=== PATIENT | female | born 1975 | race Caucasian/White ===

== ENCOUNTER → 2021-07-06 15:24 | Outpatient (CLI) | payer OTHER, SELFPAY ==
--- NOTE | ~2021-07-06 | XR_ITS ---
EXAMINATION: XR chest 2V 07/06/2021 15:52 INDICATION: Thoracic back pain PROCEDURE: 2 view chest COMPARISON: No prior studies for comparison. FINDINGS: The lungs are clear. The cardiomediastinal silhouette is within normal limits. There are no pleural effusions. There is no pneumothorax suspected. IMPRESSION: 1: NO ACUTE CARDIOPULMONARY DISEASE. Reviewed, dictated and finalized at location A.
== END ==
PROVIDERS: PCP Physician Assistant; Visit Provider Physician Assistant
DX: R11.2 Nausea with vomiting, unspecified (principal)
CPT/HCPCS: 71046

== ENCOUNTER → 2021-07-17 11:06 | Outpatient (CLI) | payer OTHER, SELFPAY ==
--- NOTE | ~2021-07-17 | US_ITS ---
US abdomen limited INDICATION: Right upper abdominal pain PROCEDURE: Realtime right upper abdominal ultrasound. COMPARISON: No prior studies for comparison. FINDINGS: The pancreas is normal without focal mass or pancreatic ductal dilation. Liver echotexture is normal without focal mass or intrahepatic biliary dilatation. There is normal directional flow i n the portal vein. The gallbladder is normal without stones, gallbladder wall thickening or pericholecystic fluid. Comm on bile duct measures 3 mm. No sonographic Dawkins's sign. IMPRESSION: 1: Normal limited abdominal ultrasound. Reviewed, dictated and finalized at location A.
== END ==
PROVIDERS: PCP Physician Assistant; Visit Provider Physician Assistant
DX: M54.6 Pain in thoracic spine (principal); R11.2 Nausea with vomiting, unspecified
CPT/HCPCS: 76705

== ENCOUNTER → 2022-09-30 09:39 | Outpatient (CLI) | payer OTHER, SELFPAY ==
--- NOTE | ~2022-09-30 | MM_ITS ---
EXAMINATION: MM screening roverto BI w miriam HISTORY: Screening TECHNIQUE: Craniocaudal and mediolateral oblique 3-D tomosynthesis images were obtained and synthetic 2-D images were generated. CAD analysis was submitted and interpreted. COMPARISON: 02/23/2018 BREAST PARENCHYMAL COMPOSITION: There are scattered areas of fibroglandular density. FINDINGS: There is no evidence of suspicious mass, calcification, or architectural distortion to sugg est malignancy in either breast. There has been no suspicious interval change. IMPRESSION: 1. No mammographic evidence of malignancy. 2. Recommend routine screening mammography in one year. BI-RADS Category 1: Negative Reviewed, dictated and finalized at location B. FLAKER
== END ==
PROVIDERS: PCP Physician Assistant; Visit Provider Physician Assistant
DX: Z12.31 Encounter for screening mammogram for malignant neoplasm of breast (principal)
CPT/HCPCS: 77063; 77067

== ENCOUNTER 2024-08-08 15:06 | Outpatient (CLI) | payer OTHER, SELFPAY ==
--- NOTE | ~2024-08-08 | MM_ITS ---
EXAMINATION: MM screening roverto BI w miriam HISTORY: Screening TECHNIQUE: Craniocaudal and mediolateral oblique 3-D tomosynthesis images were obtained and synthetic 2-D images were generated. CAD analysis was submitted and interpreted. COMPARISON: Comparison to multiple prior studies sequentially, with oldest reviewed study dated 02/23. BREAST PARENCHYMAL COMPOSITION: Not dense: There are scattered areas of fibroglandular density. FINDINGS: There is no evidence of suspicious mass, calcification, or architectural distortion to sugg est malignancy in either breast. There has been no suspicious interval change. IMPRESSION: 1. No mammographic evidence of malignancy. 2. Recommend routine screening mammography in one year. BI-RADS Category 1: Negative Reviewed, dictated and finalized at location B.
== END 2024-08-08 15:07 | disposition home or self-care (01) ==
PROVIDERS: PCP Physician Assistant; Visit Provider Nurse Practitioner
DX: Z12.31 Encounter for screening mammogram for malignant neoplasm of breast (principal)
CPT/HCPCS: 77063; 77067

== ENCOUNTER 2025-04-28 10:16 | Day surgery (SDC) | payer OTHER, SELFPAY ==
[2024-09-18 10:13] VITALS: BMI 25.6
[2024-12-30 11:39] VITALS: BMI 24.2
[2025-04-16 08:57] VITALS: BMI 24.4
--- OUTSIDE RECORDS SUMMARY | 2025-04-28 10:36 | XMS_ITS | Clinical Summary ---
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[employer] Gender Identity Not on file Sexual Orientation Not on file Plan of Treatment Health Maintenance Due Date Last Done Comments Hepatitis C Virus (HCV) Screening 1976 TdaP Immunization 1976 Hepatitis B Immunization (1 of 3 - 19+ 3-dose series) 1995 Pap Smear 1997 Cervical Cancer Screening (CCS) 2006 HPV/Cotest 2006 Discussion re Starting/Frequ ency of Mammograms 2016 Colonoscopy 2021 Colorectal Cancer Screening 2021 Influenza Immunization (#1) 2024 07/16/2019 SARS-COV-2 Immunization ( season) 2024 Respiratory Syncytial Virus (RSV) Immunization (Adult) (1 - 1-dose 75+ series) 2051 Meningococcal Immunization (ACWY) Aged Out No longer eligible based on patient's age to complete this topic Pneumococcal Immunization Combined Aged Out No longer eligible based on patient's age to complete this topic Rotavirus Immunization Aged Out No lo nger eligible based on patient's age to complete this topic
--- OUTSIDE RECORDS SUMMARY | 2025-04-28 10:36 | XMS_ITS | Data Portability ---
[facility] Address [address] [place] [address] Assessment Encounter Date Assessment Date Assessment LastModified by Organization Details LastModified Time 08/30/2024 08/30/2024 Mammogram UTD 2023 [email or web address] Not available 08/30/2024 15:40:42 Plan of Treatment Reminders Order Date Submit Date Provider Last Modified By Organization Details Last Modified Time Details Appointments None recorded. Lab TSH + free T4, serum 2023 024 SHENG Olson, [address], [address], [place], [address], 5 09:08:34 CMP, serum or plasma 2023 024 SHENG Olson, [address], [address], [place], [address], 5 09:08:35 CBC w/ auto diff 2023 024 SHENG Olson, [address], [address], [place], [address], 5 09:08:38 vitamin B12 + folate, serum or blood 2023 024 SHENG Olson, [address], [address], [place], [address], 5 09:08:36 lipid panel, serum 2023 024 SHENG Olson, [address], [address], [place], [address], 5 09:08:33 HbA1c (hemoglobin A1c), blood 2023 AD[facility], [address], [address], [place], [address], 5 09:08:37 Referral None recorded. Procedures colonoscopy screening (PROC) [address] [facility], [address], [address], [place], [address], 5 10:55:47 Surgeries None recorded. Imaging None recorded. Medication Orders fluoxetine 20 mg capsule 2023 ADAMS [id number], [address], [place], [place], [id number], 4 15:41:55 Patient TargetsNo targets recorded. Patient InstructionsNo instructions recorded. Reason for Referral None Reported. Results Created Date Observation Date Name Description Value Unit Range Abnormal Flag Note LastModifiedBy Organization Detail LastModifiedTime 12/21/1912/21/2024 LIPID PANEL W/ CHOL/ HDL RATIO cholesterol, total 169 mg/dL 100-19 9 Not Available [facility] ([facility]) [address] [facility], [place], [address], 12/21/2024 09:08:33 12/21/1912/21/2024 LIPID PANEL W/ CHOL/ HDL RATIO triglyceride s 51 mg/dL 0-149 Not Available [facility] ([facility]) [address] [facility], [place], [address], 12/21/2024 09:08:33 12/21/19 25 12/21/2024 LIPID PANEL W/ CHOL/ HDL RATIO HDL cholesterol 83 mg/dL >39 Not Available [facility] ([facility]) [address] [facility], [place], [address], 12/21/2024 09:08:33 12/21/19 25 12/21/2024 LIPID PANEL W/ CHOL/ HDL RATIO VLDL cholesterol víctor 10 mg/dL 5-40 Not Available [facility] ([facility]) [address] [place], [address], 12/21/2024 09:08:33 12/21/19 25 12/21/2024 LIPID PANEL W/ CHOL/ HDL RATIO LDL chol calc ([facility]) 76 mg/dL 0-99 Not Available [facility] ([facility]) [address] [place], [address], 12/21/2024 09:08:33 12/21/19 25 12/21/2024 LIPID PANEL W/ CHOL/ HDL RATIO T. chol/HDL ratio 2.0 ratio 0.0-4. 4 T. Chol/ HDL Ratio Men Women 1/2 Avg.R isk 3.4 3.3 Avg.R isk 5.0 4.4 2X Avg.R isk 9.6 7.1 3X Avg.R isk 23.4 11.0 Not Available [facility] ([facility]) [address] [place], [address], 12/21/2024 09:08:33 12/21/19 25 12/21/2024 TSH+F REE T4 TSH 1.730 uIU/m L 0.450- 4.500 Not Available [facility] ([facility]) [address] [place], [address], 12/21/2024 09:08:34 12/21/19 25 12/21/2024 TSH+F REE T4 T4,free(dire ct) 1.09 NG/dL 0.82-1 .77 Not Available [facility] ([facility]) [address] [place], [address], 12/21/2024 09:08:34 12/21/19 25 12/21/2024 COMP. METAB OLIC PANEL (14) glucose 87 mg/dL 70-99 Not Available [facility] ([facility]) [address], [place], [address], 12/21/2024 09:08:35 12/21/19 25 12/21/2024 COMP. METAB OLIC PANEL (14) BUN 14 mg/dL 6-24 Not Available [facility] ([facility]) [address] [facility] [place], [address], 12/21/2024 09:08:35 12/21/19 25 12/21/2024 COMP. METAB OLIC PANEL (14) creatinine 0.97 mg/dL 0.57-1 .00 Not Available [facility] ([facility]) [address] [facility] [place], [address], 12/21/2024 09:08:35 12/21/19 25 12/21/2024 COMP. METAB OLIC PANEL (14) eGFR 72 mL/mi n/1.7 3 >59 Not Available [facility] ([facility]) [address], [place], [address], 12/21/2024 09:08:35 12/21/19 25 12/21/2024 COMP. METAB OLIC PANEL (14) BUN/creatini ne ratio 14 9-23 Not Available [facility] ([facility]) [address] [facility], [place], [address], 12/21/2024 09:08:35 12/21/19 25 12/21/2024 COMP. METAB OLIC PANEL (14) sodium 140 mmol/ L 134-14 4 Not Available [facility] ([facility]) [address] [facility] [place], [address], 12/21/2024 09:08:35 12/21/19 25 12/21/2024 COMP. METAB OLIC PANEL (14) potassium 4.7 mmol/ L 3.5-5. 2 Not Available [facility] ([facility]) [address] [facility], [place], [address], 12/21/2024 09:08:35 12/21/19 25 12/21/2024 COMP. METAB OLIC PANEL (14) chloride 102 mmol/ L 96-106 Not Available [facility] ([facility]) [address] [facility] [place], [address], 12/21/2024 09:08:35 12/21/19 25 12/21/2024 COMP. METAB OLIC PANEL (14) carbon dioxide, total 23 mmol/ L 20-29 Not Available [facility] ([facility]) [address] [place], [address], 12/21/2024 09:08:35 12/21/19 25 12/21/2024 COMP. METAB OLIC PANEL (14) calcium 9.7 mg/dL 8.7-10 .2 Not Available [facility] ([facility]) [address] [facility] [place] [place], [address], 12/21/2024 09:08:35 12/21/19 25 12/21/2024 COMP. METAB OLIC PANEL (14) protein, total 7.0 g/dL 6.0-8. 5 Not Available [facility] ([facility]) [address] [facility] [place] [place], [address], 12/21/2024 09:08:35 12/21/19 25 12/21/2024 COMP. METAB OLIC PANEL (14) albumin 4.3 g/dL 3.9-4. 9 Not Available [facility] ([facility]) [address] [facility] [place], [address], 12/21/2024 09:08:35 12/21/19 25 12/21/2024 COMP. METAB OLIC PANEL (14) globulin, total 2.7 g/dL 1.5-4. 5 Not Available [facility] ([facility]) [address] [facility] [place], [address], 12/21/2024 09:08:35 12/21/19 25 12/21/2024 COMP. METAB OLIC PANEL (14) bilirubin, total 1.0 mg/dL 0.0-1. 2 Not Available [facility] ([facility]) [address] [facility] [place], [address], 12/21/2024 09:08:35 12/21/19 25 12/21/2024 COMP. METAB OLIC PANEL (14) alkaline phosphatase 61 IU/L 44-121 Not Available [facility] ([facility]) [address] [facility], [place], [address], 12/21/2024 09:08:35 12/21/19 25 12/21/2024 COMP. METAB OLIC PANEL (14) AST (SGOT) 15 IU/L 0-40 Not Available [facility] ([facility]) [address] [facility] [place], [address], 12/21/2024 09:08:35 12/21/19 25 12/21/2024 COMP. METAB OLIC PANEL (14) ALT (SGPT) 8 IU/L 0-32 Not Available [facility] ([facility]) [address] [facility] [place], [address], 12/21/2024 09:08:35 12/21/19 25 12/21/2024 VITAM IN B12 AND FOLAT E vitamin B12 248 pg/mL 232-12 45 Not Available [facility] ([facility]) [address] [facility] [place], [address], 12/21/2024 09:08:36 12/21/19 25 12/21/2024 VITAM IN B12 AND FOLAT E folate (folic acid), serum 4.7 NG/mL >3.0 A serum folat e kierra ntrat ion of less than 3.1 ng/mL is consi dered to repre sent clini víctor defic iency . Not Available [facility] ([facility]) [address] [facility] [place], [address], 12/21/2024 09:08:36 12/21/19 25 12/21/2024 HEMOG LOBIN A1C hemoglobin A1C 5.3 % 4.8-5. 6 Predi abete s: 5.7 - 6.4 Diabe ralph: >6.4 Glyce carlos contr ol for adult s with diabe ralph: <7.0 Not Available [facility] ([facility]) [address] [facility], [place], [address], 12/21/2024 09:08:37 12/21/19 25 12/21/2024 CBC WITH DIFFE RENTI AL/PL ATELE T WBC 4.4 x10e3 /uL 3.4-10 .8 Not Available [facility] ([facility]) [address] [facility], [place], [address], 12/21/2024 09:08:38 12/21/19 25 12/21/2024 CBC WITH DIFFE RENTI AL/PL ATELE T RBC 4.41 x10e6 /uL 3.77-5 .28 Not Available [facility] ([facility]) [address] [facility], [place], [address], 12/21/2024 09:08:38 12/21/19 25 12/21/2024 CBC WITH DIFFE RENTI AL/PL ATELE T hemoglobin 13.6 g/dL 11.1-1 5.9 Not Available [facility] ([facility]) [address] [facility], [place], [address], 12/21/2024 09:08:38 12/21/19 25 12/21/2024 CBC WITH DIFFE RENTI AL/PL ATELE T hematocrit 40.9 % 34.0-4 6.6 Not Available [facility] ([facility]) [address] [place], [address], 12/21/2024 09:08:38 12/21/19 25 12/21/2024 CBC WITH DIFFE RENTI AL/PL ATELE T MCV 93 fL 79-97 Not Available [facility] ([facility]) [address] [facility], [place], [address], 12/21/2024 09:08:38 12/21/19 25 12/21/2024 CBC WITH DIFFE RENTI AL/PL ATELE T MCH 30.8 pg 26.6-3 3.0 Not Available [facility] ([facility]) [address] [facility], [place], [address], 12/21/2024 09:08:38 12/21/19 25 12/21/2024 CBC WITH DIFFE RENTI AL/PL ATELE T MCHC 33.3 g/dL 31.5-3 5.7 Not Available [facility] ([facility]) [address] [facility], [place], [address], 12/21/2024 09:08:38 12/21/19 25 12/21/2024 CBC WITH DIFFE RENTI AL/PL ATELE T RDW 12.6 % 11.7-1 5.4 Not Available [facility] ([facility]) [address] [facility], [place], [address], 12/21/2024 09:08:38 12/21/19 25 12/21/2024 CBC WITH DIFFE RENTI AL/PL ATELE T platelets 243 x10e3 /uL 150-45 0 Not Available [facility] ([facility]) [address] [place], [address], 12/21/2024 09:08:38 12/21/19 25 12/21/2024 CBC WITH DIFFE RENTI AL/PL ATELE T neutrophils 49 % notest ab. Not Available [facility] ([facility]) [address] [place], [address], 12/21/2024 09:08:38 12/21/19 25 12/21/2024 CBC WITH DIFFE RENTI AL/PL ATELE T lymphs 36 % notest ab. Not Available [facility] ([facility]) [address] [place], [address], 12/21/2024 09:08:38 12/21/19 25 12/21/2024 CBC WITH DIFFE RENTI AL/PL ATELE T monocytes 7 % notest ab. Not Available [facility] ([facility]) [address] [facility], [place], [address], 12/21/2024 09:08:38 12/21/19 25 12/21/2024 CBC WITH DIFFE RENTI AL/PL ATELE T eos 7 % notest ab. Not Available [facility] ([facility]) [address] [facility], [place], [address], 12/21/2024 09:08:38 12/21/19 25 12/21/2024 CBC WITH DIFFE RENTI AL/PL ATELE T basos 1 % notest ab. Not Available [facility] ([facility]) [address] [place], [address], 12/21/2024 09:08:38 12/21/19 25 12/21/2024 CBC WITH DIFFE RENTI AL/PL ATELE T neutrophils (absolute) 2.2 x10e3 /uL 1.4-7. 0 Not Available [facility] ([facility]) [address] [place], [address], 12/21/2024 09:08:38 12/21/19 25 12/21/2024 CBC WITH DIFFE RENTI AL/PL ATELE T lymphs (absolute) 1.6 x10e3 /uL 0.7-3. 1 Not Available [facility] ([facility]) [address] [place], [address], 12/21/2024 09:08:38 12/21/19 25 12/21/2024 CBC WITH DIFFE RENTI AL/PL ATELE T monocytes(ab solute) 0.3 x10e3 /uL 0.1-0. 9 Not Available [facility] ([facility]) [address] [place], [address], 12/21/2024 09:08:38 12/21/19 25 12/21/2024 CBC WITH DIFFE RENTI AL/PL ATELE T eos (absolute) 0.3 x10e3 /uL 0.0-0. 4 Not Available [facility] ([facility]) [address] [place], [address], 12/21/2024 09:08:38 12/21/19 25 12/21/2024 CBC WITH DIFFE RENTI AL/PL ATELE T baso (absolute) 0.1 x10e3 /uL 0.0-0. 2 Not Available [facility] ([facility]) [address] [facility], [place], [address], 12/21/2024 09:08:38 12/21/19 25 12/21/2024 CBC WITH DIFFE RENTI AL/PL ATELE T immature granulocytes 0 % notest ab. Not Available [facility] ([facility]) [address] [facility], [place], [address], 12/21/2024 09:08:38 12/21/1912/21/2024 CBC WITH DIFFE RENTI AL/PL ATELE T immature grans (abs) 0.0 x10e3 /uL 0.0-0. 1 Not Available [facility] ([facility]) [address] [place], [address], 12/21/2024 09:08:38 08/09/20 24 08/08/2024 MAMMO , scree jimmy, digit al, bilat eral No observ ation record ed. [email or web address] [facility] [address], [place], [address], 08/09/2024 18:11:16 Result Notes None recorded. Problems Name Problem SNOMED Code Status Onset Date Resolution Date Notes Provider Name and Address Organization Details Recorded Time Mixed anxiety and depressive disorder 188748657 Active 024 OZ Durant Attn: Accountin g,[address] [facility], [place], [address], [place] [facility] 4 15:38:26 Long-term drug therapy Active 024 OZ Durant Attn: Accountin g,[address] [facility], [place], [address], [place] [facility] 4 15:38:27 Body mass index 20-24 - normal 399421869 Active 024 OZ Durant Attn: Accountin g,[address] [facility], [place], [address], [place] [facility] 4 14:25:41 Problem Notes None recorded. Procedures Surgical History Date Name Laterality Status Provider Name and Address Organization Details Recorded Time 4 section completed Alissa Stevenson MA ID - [facility] 08/30/2024 16:36:34 Imaging Results None recorded. Procedure Notes None recorded. Medical Equipment None Reported. Allergies Allergen ID Allergen Name Allergen Category Reaction Reaction Severity Criticality Documentation Date Start Date Code Code System Note Provider Name and Address Organization Details Recorded Time 144171 Product containin g penicilli n (product) medicatio n Not available Not available Not available 08/30/2024 49716 8001 SNOMED Alissa Stevenson MA null, [place] - [facility] 4 15:10:26 Medications Name Sig Start Date Stop Date Status Note LastModified by Organization Details LastModified Time fluoxetine 10 mg capsule Take 1 capsule every day by oral route as directed. 024 active Not Available Not Available Not Avai lable fluoxetine 20 mg capsule TAKE 1 CAPSULE BY MOUTH DAILY 024 active Not Available Not Available Not Avai lable Probiotic active Not Available Not Idlcia ilable Not Available Vitals Date Recorded Systolic And Diastolic Provider Name and Address Organization Details Last Updated DateTime 08/30/2024 120/80 mm[Hg] OZ Durant Attn: Accounting,[address] [facility], [place], [address], [place] [facility] 08/30/2024 15:38:16 Date Recorded Body height Body mass index (BMI) Body weight Oxygen saturation Oxygen saturation in Arterial blood by Pulse oximetry Heart rate Respiratory rate Systolic And Diastolic Provider Name and Address Organization Details Last Updated DateTime 4 162.56 cm 24.6 kg/m2 11821.5 1 g 98 % 98 % 80 /min 20 /min 110/62 mm[Hg] Alissa Stevenson MA [place] - [facility] 4 15:09:05 Social History Question Answer Notes LastModified by Organization D etails LastModified Time Are There Any Guns Present In Your Home? No Information not available 08/30/2024 Do You Have Smoke And Carbon Monoxide Detectors In Your Home? Yes Information not available 08/30/2024 Do You Use Sunscreen Routinely? No Information not available 08/30/2024 Sex: Female Functional Status Question Answer Note LastModified by Organizat ion Details LastModified Time Do you use any illicit or recreational drugs? No Information not available 08/30/2024 What is your level of alcohol consumption? Occasional weekly a couple glasses of wine Information not available 08/30/2024 Mental Status None recorded. Family History Nothing Reported. Medical History Condition Response Have you had a mammogram in the last yea r? Y Have you had a colonoscopy in the last 1 0 years? N Gynecological HistoryNo gynecological history recorded. Obstetrics History GPAL:G 2 P 2 0 0 2 Type Value Full Term 2 Living 2 Total 2 Immunizations Vaccine Type Date Status Note Provider Nam e and Address Organization Details Recorded Time COVID-19, mRNA, LNP-S, PF, 100 mcg/0.5mL dose or 50 mcg/0.25mL dose 11/19/2020 completed DAMIÁN Márquez, [place] - [facility] 01/17/2025 12:45:58 COVID-19, mRNA, LNP-S, PF, 100 mcg/0.5mL dose or 50 mcg/0.25mL dose 12/17/2020 completed Charo Mcgraw [place] null, [place] [facility] 01/17/2025 12:45:58 COVID-19, mRNA, LNP-S, PF, 100 mcg/0.5mL dose or 50 mcg/0.25mL dose 08/10/2021 completed Charo Mcgraw MA dom, [facility] 01/17/2025 12:45:58 Influenza, split virus, quadrivalent, PF 07/16/2019 [facility] 01/17/2025 12:45:58 Past Encounters Encounter ID Performer Location Encounter Start Date Encounter Closed Date Diagnosis/Indication Diagnosis SNOMED-CT Code Diagnosis ICD10 Code Diagnosis Note [id number] Konrad Richard MD [facility] - Carmen Arguelles [address] [place] [address] 08/30/2024 14:51:32 08/30/2024 15:57:47 Adult health examination 629867029 Z00.00 Annual wellness exam completed Cholesterol screening 27 1736772 Z13.220 Fasting lipid panel due Diabetes m ellitus screening 447672362 Z13.1 Annual diabetes screening due Long-term drug therapy 626366463 Z79.891 cmp, cbc and b12, folate labs are due Thyroid di sorder screening 282301262 Z13.29 Routine thyroid function testing due Mixed anxi ety and depressive disorder 560038304 F41.8 Refill on fluoxetine 20 mg daily for management of mixed anxiety and depression Screening for malignant neoplasm of colon 408120689 Z12.11 Refer for colonoscop y screening that is due Body mass index 20-24 - normal 039053376 Z68.24 BMI is 24.6 Health Concerns Section Related Observation LastModified by Organization Detai ls LastModified Time None Recorded Concern Status LastModified by Organization Details LastModified Time None Recorded Advance Directives Directive None Recorded Payers Insurance Date Sequence Insurance Name Policy Number Policy Stout Covered Member ID Stout Member ID Guarantor Name 09/16/2024 1 [facility] Tasia [id number] Kym Dozier Notes Date Note Type Note Provider Name and Address Organization Details Recorded Time 08/30/2024 text/html Anxiety/Depressi on Reported bypatient.Notes:Mi xed anxiety and depression. stable. both parents have cancer. Significant amount of stress that is accompanying helping to direct and support her parents with their malignancy diagnoses. Patient does take fluoxetine 20 mg daily which is helping. OZ Durant Attn: Accounting,[address] [place], [address], [facility] - [facility] 09/14/2024 14:25:57 OBGyn Episode No OBEpisode recorded.
--- OUTSIDE RECORDS SUMMARY | 2025-04-28 10:36 | XMS_ITS | Data Portability ---
Author Organization [facility], Main Office Address [address] [place] [address] Care Team Providers Care Talking Books Library Clerk Name Role Phone AZALEALINDA SCHMIDT Primary Care Provider LINDA HULL Referring Provider [phone] Assessment No assessment recorded. Plan of Treatment Reminders Order Date Submit Date Provider Last Modified By Organization Details Last Modified Time Details Appointments None recorded. Lab TSH + free T4, serum 2022 023 [email or web address] [facility], [address], [address], [place], [address], 3 14:32:48 lipid panel, serum 2022 023 [email or web address] [facility], [address] Stephanie [address], [address], [place], [address], 3 14:32:47 CBC w/ auto diff 2022 023 [email or web address] [facility], [address] Stephanie [address]rera, [address], [place], [address], 3 14:32:47 CMP, serum or plasma 2022 023 [email or web address] [facility], [address]rera, [address], [place], [address], 3 09:47:37 HbA1c (hemoglobin A1c), blood 2022 023 [email or web address] [facility], [address] Cabrera, [address], [place], [address], 3 14:32:47 Referral None recorded. Procedures None recorded. Surgeries None recorded. Imaging MAMMO, screening, digital, bilateral 2022 023 [email or web address] Not available 4 09:56:17 Medication Orders fluoxetine 20 mg capsule 2022 023 [email or web address] [id number], [address], [place], [place], [id number], 3 00:24:54 Patient TargetsNo targets recorded. Patient InstructionsNo instructions recorded. Reason for Referral None Reported. Results Created Date Observation Date Name Description Value Unit Range Abnormal Flag Note LastModifiedBy Organization Detail LastModifiedTime 07/06/2007/07/2021 JOSE DANIEL+L IPASE amylase 24 U/L 31-110 below low normal Not Available [facility] ([facility]) [address] [place], [address], 07/07/2021 10:37:29 07/06/2007/07/2021 JOSE DANIEL+L IPASE lipase 24 U/L 14-72 Not Available [facility] ([facility]) [address] [place], [address], 07/07/2021 10:37:29 07/06/2007/07/2021 CBC WITH DIFFE RENTI AL/PL ATELE T WBC 5.5 x10e3 /uL 3.4-10 .8 Not Available [facility] ([facility]) [address] [place], [address], 07/07/2021 10:37:28 07/06/2007/07/2021 CBC WITH DIFFE RENTI AL/PL ATELE T RBC 3.89 x10e6 /uL 3.77-5 .28 Not Available [facility] ([facility]) [address] [place], [address], 07/07/2021 10:37:28 07/06/2007/07/2021 CBC WITH DIFFE RENTI AL/PL ATELE T hemoglobin 11.6 g/dL 11.1-1 5.9 Not Available [facility] ([facility]) [address] [place], [address], 07/07/2021 10:37:28 07/06/20 21 07/07/2021 CBC WITH DIFFE RENTI AL/PL ATELE T hematocrit 36.1 % 34.0-4 6.6 Not Available [facility] ([facility]) [address] [facility], [place], [address], 07/07/2021 10:37:28 07/06/2007/07/2021 CBC WITH DIFFE RENTI AL/PL ATELE T MCV 93 fL 79-97 Not Available [facility] ([facility]) [address] [facility], [place], [address], 07/07/2021 10:37:28 07/06/20 21 07/07/2021 CBC WITH DIFFE RENTI AL/PL ATELE T MCH 29.8 pg 26.6-3 3.0 Not Available [facility] ([facility]) [address] [place], [address], 07/07/2021 10:37:28 07/06/2007/07/2021 CBC WITH DIFFE RENTI AL/PL ATELE T MCHC 32.1 g/dL 31.5-3 5.7 Not Available [facility] ([facility]) [address] [place], [address], 07/07/2021 10:37:28 07/06/2007/07/2021 CBC WITH DIFFE RENTI AL/PL ATELE T RDW 13.7 % 11.7-1 5.4 Not Available [facility] ([facility]) [address] [place], [address], 07/07/2021 10:37:28 07/06/20 21 07/07/2021 CBC WITH DIFFE RENTI AL/PL ATELE T platelets 245 x10e3 /uL 150-45 0 Not Available [facility] ([facility]) [address] [place], [address], 07/07/2021 10:37:28 07/06/2007/07/2021 CBC WITH DIFFE RENTI AL/PL ATELE T neutrophils 55 % not estab. Not Available [facility] ([facility]) [address] [facility], [place], [address], 07/07/2021 10:37:28 07/06/2007/07/2021 CBC WITH DIFFE RENTI AL/PL ATELE T lymphs 35 % not estab. Not Available [facility] ([facility]) [address] [facility], [place], [address], 07/07/2021 10:37:28 07/06/2007/07/2021 CBC WITH DIFFE RENTI AL/PL ATELE T monocytes 7 % not estab. Not Available [facility] ([facility]) [address] [place], [address], 07/07/2021 10:37:28 07/06/2007/07/2021 CBC WITH DIFFE RENTI AL/PL ATELE T eos 2 % not estab. Not Available [facility] ([facility]) [address] [facility], [place], [address], 07/07/2021 10:37:28 07/06/2007/07/2021 CBC WITH DIFFE RENTI AL/PL ATELE T basos 1 % not estab. Not Available [facility] ([facility]) [address] [place], [address], 07/07/2021 10:37:28 07/06/2007/07/2021 CBC WITH DIFFE RENTI AL/PL ATELE T immature cells safety and security officer Not Available [facility] ([facility]) [address] [facility] [place], [address], 07/07/2021 10:37:28 07/06/20 21 07/07/2021 CBC WITH DIFFE RENTI AL/PL ATELE T neutrophils (absolute) 3.1 x10e3 /uL 1.4-7. 0 Not Available [facility] ([facility]) [address] [facility], [place], [address], 07/07/2021 10:37:28 07/06/20 21 07/07/2021 CBC WITH DIFFE RENTI AL/PL ATELE T lymphs (absolute) 2.0 x10e3 /uL 0.7-3. 1 Not Available [facility] ([facility]) [address] [facility], [place], [address], 07/07/2021 10:37:28 07/06/2007/07/2021 CBC WITH DIFFE RENTI AL/PL ATELE T monocytes(ab solute) 0.4 x10e3 /uL 0.1-0. 9 Not Available [facility] ([facility]) [address] [facility], [place], [address], 07/07/2021 10:37:28 07/06/20 21 07/07/2021 CBC WITH DIFFE RENTI AL/PL ATELE T eos (absolute) 0.1 x10e3 /uL 0.0-0. 4 Not Available [facility] ([facility]) [address] [facility], [place], [address], 07/07/2021 10:37:28 07/06/2007/07/2021 CBC WITH DIFFE RENTI AL/PL ATELE T baso (absolute) 0.1 x10e3 /uL 0.0-0. 2 Not Available [facility] ([facility]) [address] [facility], [place], [address], 07/07/2021 10:37:28 07/06/2007/07/2021 CBC WITH DIFFE RENTI AL/PL ATELE T immature granulocytes 0 % not estab. Not Available [facility] ([facility]) [address] [facility], [place], [address], 07/07/2021 10:37:28 07/06/20 21 07/07/2021 CBC WITH DIFFE RENTI AL/PL ATELE T immature grans (abs) 0.0 x10e3 /uL 0.0-0. 1 Not Available [facility] ([facility]) [address] [facility], [place], [address], 07/07/2021 10:37:28 07/06/2007/07/2021 CBC WITH DIFFE RENTI AL/PL ATELE T NRBC safety and security officer Not Available [facility] ([facility]) [address] [facility], [place], [address], 07/07/2021 10:37:28 07/06/20 21 07/07/2021 CBC WITH DIFFE RENTI AL/PL ATELE T hematology comments: safety and security officer Not Available [facility] ([facility]) [address] [facility], [place], [address], 07/07/2021 10:37:28 07/06/20 21 07/07/2021 CMP14 +EGFR glucose 94 mg/dL 65-99 Not Available [facility] ([facility]) [address] [facility], [place], [address], 07/07/2021 10:37:27 07/06/20 21 07/07/2021 CMP14 +EGFR BUN 7 mg/dL 6-24 Not Available [facility] ([facility]) [address] [facility], [place], [address], 07/07/2021 10:37:27 07/06/20 21 07/07/2021 CMP14 +EGFR creatinine 0.85 mg/dL 0.57-1 .00 Not Available [facility] ([facility]) [address] [facility], [place], [address], 07/07/2021 10:37:27 07/06/20 21 07/07/2021 CMP14 +EGFR eGFR if nonafricn AM 83 mL/mi n/1.7 3 >59 Not Available [facility] ([facility]) [address] [place], [address], 07/07/2021 10:37:27 07/06/20 21 07/07/2021 CMP14 +EGFR eGFR if africn AM 96 mL/mi n/1.7 3 >59 Lab mark[facility] curre ntly repor ts eGFR in compl iance with the curre nt recom menda tions of the [facility] ation . [facility] will updat e leo lieberman as new guide lines are publi shed from the NKF-A SN Task force . Not Available [facility] ([facility]) [address] [place], [address], 07/07/2021 10:37:27 07/06/20 21 07/07/2021 CMP14 +EGFR BUN/creatini ne ratio 8 9-23 below low normal Not Available [facility] ([facility]) [address] [place], [address], 07/07/2021 10:37:27 07/06/20 21 07/07/2021 CMP14 +EGFR sodium 143 mmol/ L 134-14 4 Not Available [facility] ([facility]) [address] [place], [address], 07/07/2021 10:37:27 07/06/20 21 07/07/2021 CMP14 +EGFR potassium 3.8 mmol/ L 3.5-5. 2 Not Available [facility] ([facility]) [address] [place], [address], 07/07/2021 10:37:27 07/06/20 21 07/07/2021 CMP14 +EGFR chloride 105 mmol/ L 96-106 Not Available [facility] ([facility]) [address] [facility] [place], [address], 07/07/2021 10:37:27 07/06/20 21 07/07/2021 CMP14 +EGFR carbon dioxide, total 19 mmol/ L 20-29 below low normal Not Available [facility] ([facility]) [address] [facility], [place], [address], 07/07/2021 10:37:27 07/06/20 21 07/07/2021 CMP14 +EGFR calcium 9.3 mg/dL 8.7-10 .2 Not Available [facility] ([facility]) [address] [facility], [place], [address], 07/07/2021 10:37:27 07/06/20 21 07/07/2021 CMP14 +EGFR protein, total 7.4 g/dL 6.0-8. 5 Not Available [facility] ([facility]) [address] [facility], [place], [address], 07/07/2021 10:37:27 07/06/20 21 07/07/2021 CMP14 +EGFR albumin 4.6 g/dL 3.8-4. 8 Not Available [facility] ([facility]) [address] [facility], [place], [address], 07/07/2021 10:37:27 07/06/2007/07/2021 CMP14 +EGFR globulin, total 2.8 g/dL 1.5-4. 5 Not Available [facility] ([facility]) [address] [facility], [place], [address], 07/07/2021 10:37:27 07/06/2007/07/2021 CMP14 +EGFR A/G ratio 1.6 1.2-2. 2 Not Available [facility] ([facility]) [address] [facility], [place], [address], 07/07/2021 10:37:27 09/21/07/07/2021 CMP14 +EGFR bilirubin, total 0.6 mg/dL 0.0-1. 2 Not Available [facility] ([facility]) [address] [facility], [place], [address], 07/07/2021 10:37:27 07/06/20 21 07/07/2021 CMP14 +EGFR alkaline phosphatase 58 IU/L 44-121 Ple ase note refer ence inter lobo braun e Not Available [facility] ([facility]) [address] [facility], [place], [address], 07/07/2021 10:37:27 07/06/2007/07/2021 CMP14 +EGFR AST (SGOT) 17 IU/L 0-40 Not Available [facility] ([facility]) [address] [facility], [place], [address], 07/07/2021 10:37:27 07/06/20 21 07/07/2021 CMP14 +EGFR ALT (SGPT) 8 IU/L 0-32 Not Available [facility] ([facility]) [address] [facility], [place], [address], 07/07/2021 10:37:27 07/07/20 21 07/06/2021 XR, chest , 2 view No observ ation record ed. [id number] [facility] [address], [place], [address], 12/14/2022 19:49:53 07/19/2007/19/2021 US, charlie garcía r No observ ation record ed. [id number] [facility] (Imaging) [address], [place], [address], 12/14/2022 19:49:53 07/19/20 XR, hand, 3 or more view No observ ation record ed. [id number] [email or web address] [place] [address], [place], [address], 12/14/2022 19:49:53 07/19/20 22 XR, hand, 3 or more view No observ ation record ed. [id number] [email or web address] [place] [address], [place], [address], 12/14/2022 19:49:53 Result Notes None recorded. Problems Name Problem SNOMED Code Status Onset Date Resolution Date Notes Provider Name and Address Organization Details Recorded Time Ganglion cyst of left hand 55665102111882 5 Active 2021 Not Available [facility] 19:48:54 Anxiety 70378762 Active 2022 ALISSON Diamond, [place] - [facility] [employer] 12:05:44 Problem Notes None recorded. Procedures Surgical History Date Name Laterality Status Provider Name and Address Organization Details Recorded Time completed Not Available [facility] 0 12/14/2022 19:48:14 completed Not Available [facility] 0 12/14/2022 19:48:14 other completed Not Available [facility] 10/2022 19:48:14 Imaging Results None recorded. Procedure Notes None recorded. Medical Equipment None Reported. Allergies Allergen ID Allergen Name Allergen Category Reaction Reaction Severity Criticality Documentation Date Start Date Code Code System Note Provider Name and Address Organization Details Recorded Time 55583 Product containin g penicilli n (product) medicatio n Not available Not available Not available 12/14/2022 00091 8001 SNOMED Not Available [facility] 19:49:48 94566 amoxicill in medicatio n Not available Not available Not available 12/14/2022 723 RxNorm Not Available [facility] 19:49:48 Medications Name Sig Start Date Stop Date Status Note LastModified by Organization Details LastModified Time prednisone 20 mg tablet 06/29 completed Not Available Not Available Not Available ciprofloxac in 500 mg tablet TK 1 T PO Q 12 H. DISCONTIN UE MACROBID 06/29 completed Not Available Not Available Not Available fluoxetine 10 mg capsule TAKE 1 CAPSULE BY MOUTH EVERY DAY 01/23 completed Not Available Not Available Not Available fluoxetine 20 mg capsule TAKE ONE CAPSULE BY MOUTH DAILY 2022 active Not Available Not Available Not Avai lable doxycycline hyclate 100 mg tablet 06/29 completed Not Available Not Available Not Available nitrofurant oin monohydrate /macrocryst als 100 mg capsule Take 1 capsule every 12 hours by oral route. 05/31 completed Not Available Not Available Not Available Virtussin AC 10 mg-100 mg/5 mL oral liquid 06/29 completed Not Available Not Available Not Available ID NOW COVID-19 Test Kit TEST DIRECTED 06/29 completed Not Available Not Available Not Available Vitals Date Recorded Body mass index (BMI) Body height Oxygen saturation Oxygen saturation in Arterial blood by Pulse oximetry Heart rate Respiratory rate Body temperature Body weight Systolic And Diastolic Provider Name and Address Organization Details Last Updated DateTime 2 24 kg/m2 162.56 cm 98 % 98 % 61 /min 16 /min 98.5 [degF] 57395.9 3 g 112/70 mm[Hg] Not Available [facility] 3 19:48:28 Date Recorded Body mass index (BMI) Body height Oxygen saturation Oxygen saturation in Arterial blood by Pulse oximetry Heart rate Body temperature Body weight Systolic And Diastolic Provider Name and Address Organization Details Last Updated DateTime 1 25 kg/m2 162.56 cm 98 % 98 % 91 /min 97.8 [degF] 43758.7 7 g 110/70 mm[Hg] Not Available [facility] 3 19:48:27 Date Recorded Body height Body temperature Body mass index (BMI) Body weight Respiratory rate Oxygen saturation Oxygen saturation in Arterial blood by Pulse oximetry Heart rate Systolic And Diastolic Provider Name and Address Organization Details Last Updated DateTime 3 162.56 cm 98.2 [degF] 23.3 kg/m2 08731.5 6 g 16 /min 99 % 99 % 71 /min 112/70 mm[Hg] ALISSON Diamond [place] [facility] [place] [employer] [facility] 3 11:35:30 Date Recorded Body mass index (BMI) Body height Body weight Provider Name and Address Organization Details Last Updated DateTime 07/19/2022 23.3 kg/m2 162.56 cm 27719.56 g Not Available [facility] 12/14/2022 19:48:29 Social History Question Answer Notes LastModified by Organizat ion Details LastModified Time Tobacco Smoking Status Never Smoker Not Available [facility] 12/14/2022 19:48:02 Do You Have An Advance Directive? No [id number] Information not available 12/14/2022 If You Are , What Was Your Level Of Alcohol Consumption Prior To ? None [id number] 2246 Information not available 12/14/2022 Do You Wear A Helmet When Biking? No MIGRATION.[id number] 1544 Information not available 12/14/2022 What Is Your Level Of Caffeine Consumption? Moderate [id number].[id number] 8441 Information not available 12/14/2022 In The 14 Days Before Symptom Onset, Have You Had Close Contact With A Laboratory-confirm ed COVID-19 While That Case Was Ill? No [id number] Information not available 12/14/2022 In The 14 Days Before Symptom Onset, Have You Had Close Contact With A Person Who Is Under Investigation For COVID-19 While That Person Was Ill? No [id number] Information not available 12/14/2022 What Type Of Diet Are You Following? REGULAR [id number].[id number] 8699 Information not available 12/14/2022 What Is The Highest Grade Or Level Of School You Have Completed Or The Highest Degree You Have Received? PI63772-0 [id number].109202 2570 Information not available 12/14/2022 Have There Been Any Changes To Your Family Or Social Situation? No [email or web address] Information no t available 07/06/2023 Are There Any Guns Present In Your Home? Yes MIGRATION.[id number] 8916 Information not available 12/14/2022 Do You Use Insect Repellent Routinely? Yes MIGRATION.[id number] 6496 Information not available 12/14/2022 Do You Have A Medical Power Of Digital Media Designer? No MIGRATION.769903 0695 Information not available 12/14/2022 What Was The Date Of Your Most Recent Tobacco Screening? 07/19/2022 [id number].534011 5005 Information not available 12/14/2022 Have You Ever Been Counseled For Unhealthy Alcohol Use? No MIGRATION.824662 9435 Information not available 12/14/2022 What Is Your Relationship Status? MIGRATION.823622 3442 Information not available 12/14/2022 Do You Use Your Seat Belt Or Car Seat Routinely? Yes MIGRATION.764289 2472 Information not available 12/14/2022 Do You Have Smoke And Carbon Monoxide Detectors In Your Home? Yes MIGRATION.[id number] 5300 Information not available 12/14/2022 Do You Use Sunscreen Routinely? Yes MIGRATION.225553 3753 Information not available 12/14/2022 Has Tobacco Cessation Counseling Been Provided? No MIGRATION.693569 4055 Information not available 12/14/2022 Have You Recently Traveled Abroad? No MIGRATION.236613 3729 Information not available 12/14/2022 Do You Have Any Dietary Restrictions? No MIGRATION.516867 4173 Information not available 12/14/2022 Sex: Unknown Functional Status Question Answer Note LastModified by Whyd Details LastModified Time Do you use any illicit or recreational drugs? No [id number].[id number] 026 Information not available 12/14/2022 Do you or have you ever used any other forms of tobacco or nicotine? No MIGRATION.[id number] 026 Information not available 12/14/2022 What is your level of alcohol consumption? Occasional MIGRATION.[id number] 026 Information not available 12/14/2022 Are you currently employed? 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 Moderate MIGRATION.8806001 026 Information not available 12/14/2022 Mental Status Question Answer Note LastModified by Whyd Details LastModified Time Do you feel stressed (tense, restless, nervous, or anxious, or unable to sleep at night)? [id number] [id number] 6 Information not available 12/14/2022 Family History Relationship Description Onset Age of this Age Resolved Age Notes LastModified by Organization Details LastModified Time Father No current problems or disability [email or web address] Not available 06/17 12:05:48 Mother No current problems or disability [email or web address] Not available 06/17 12:05:48 Notes:pt was adopted Medical History Condition Response EYE PROBLEMS Y HEADACHES/MIGRAINES Y BOWEL PROBLEMS Y Gynecological History Statement/Question Response Abnormal Pap N Date of Last Mammogram 02/23/2018 Date of LMP 03/29/2019 Sexually Active? Y Menses Monthly Y Date of Last Pap 06/14/2019 Current Control Method Partner Vas ectomy Obstetrics History GPAL:G 2 P 0 0 0 2 Type Value Living 2 Total 2 Immunizations Vaccine Type Date Status Note Provider Nam e and Address Organization Details Recorded Time COVID-19, mRNA, LNP-S, PF, 100 mcg/0.5mL dose or 50 mcg/0.25mL dose 12/17/2020 completed Not Available [facility] 3 19:49:46 COVID-19, mRNA, LNP-S, PF, 100 mcg/0.5mL dose or 50 mcg/0.25mL dose 11/19/2020 completed Not Available [facility] 3 19:49:46 Past Encounters Encounter ID Performer Location Encounter Start Date Encounter Closed Date Diagnosis/Indication Diagnosis SNOMED-CT Code Diagnosis ICD10 Code Diagnosis Note [id number] OZ Durant [facility] [place] [address] [place] [address] 07/06/2021 00:00:00 07/13/2021 23:14:36 [id number] OZ Durant [facility] [place] [address] [place] [address] 06/29/2022 00:00:00 07/14/2022 18:58:43 [id number] Tereso Joyner MD [facility] [place] [address] [place] [address] 07/19/2022 00:00:00 07/19/2022 17:19:05 [id number] OZ Durant [facility] [place] [address] [place] [address] 07/07/2023 11:29:14 07/07/2023 12:07:53 Adult health examination 001439793 Z00.00 well exam completed. Perimenopausal state 977 6644507 67455 Z78.0 Rx for fluoxetine 20mg daily. Cholesterol screening 27 9898662 Z13.220 fasting lipids due Diabetes m ellitus screening 703218452 Z13.1 screening diabetes due Screening mammography 24 027940 Z12.31 mammogram screening due Thyroid di sorder screening 946747516 Z13.29 screening TFTs ordered Health Concerns Section Related Observation LastModified by Organization Detai ls LastModified Time None Recorded Concern Status LastModified by Organization Details LastModified Time None Recorded Advance Directives Directive N: Payers Insurance Date Sequence Insurance Name Policy Number Policy Stout Covered Member ID Stout Member ID Guarantor Name 07/17/2023 1 [facility] [id number] Giovanni Glover Tasia [id number] Kym Tasia Notes Date Note Type Note Provider Name and Address Organization Details Recorded Time 07/06/2021 text/html Back Pain - GeneralReported bypatient.Quality:sha rp;dull Severity:feeling the same;pain level 7/10;moderate (5-7);interference with work Duration:constant Timing:sudden Alleviating Factors:rest Aggravating Factors:sitting; breathing in deeply Associated Symptoms:no fever; no weak limbs; no tingling; no numbness of the legs/feet; no incontinence; no shortness of breath Not Available [employer] 07/13/2021 23:14:36 06/29/2022 text/html Generic HPI TemplateReported bypatient.Notes:pt presents today for annual check up. Not Available [employer] 07/14/2022 18:58:43 07/07/2023 text/html Anxiety/Depressi onRep orted bypatient.Quality:salvador snt matter time of day-situational. Severity:denies suicidal ideations; able to maintain relationships; does not interfere with activities of daily living;interference with work Duration:symptoms lasting over 2 weeks Onset/Timing:still present; stable on meds Context:no major life stressors Associated Symptoms:denies homicidal ideations; no significant weight gain; no significant weight loss; no visual/auditory hallucinations; no delusions; no shortness of breath Wellness OZ Durant [address], [place] [address], [place], [address], [employer] 07/16/2023 00:26:38 OBGyn Episode No OBEpisode recorded.
[2025-04-28 10:59] VITALS: BP 106/69; PULSE 64; RESP 16; TEMP 36.4; O2SAT 100; BMI 24.8
--- NOTE | 2025-04-28 11:44 | P.PNAN_ITS ---
Anes - Initial Pre Proc Eval Procedure: Operation Date: 04/28/25 12:00 Proposed Procedures p Screening Colonoscopy - Rodger Mendoza MD Date/Time: 04/28/25 11:44 Surgeon: Rodger Mendoza MD Pre Op Diagnosis: Neoplasm Screening Patient Data Age: 49 Gender: F Height: 1.63 m Weight: 65.7 kg Last Vital Signs Temp 97.6 F 04/28/25 10:59 Pulse 64 04/28/25 10:59 Resp 16 04/28/25 10:59 BP 106/69 04/28/25 10:59 Pulse Ox 100 04/28/25 10:59 O2 Del Method Room Air 04/28/25 10:59 Allergies Allergy/AdvReac Type Severity Reaction Status Date / Time amoxicillin Allergy Unknown Hives Verified 04/28/25 10:47 dicloxacillin Allergy Unknown Hives Verified 04/28/25 10:47 Penicillins Allergy Unknown Hives Verified 04/28/25 10:47 Home Medications ?Medication ?Instructions ?Recorded ?Confirmed ?Type fluoxetine 10 mg capsule 10 mg PO QPM 12/30/24 04/28/25 History lactobacillus combination no.4 3 3,000 mmu cells PO DAILY 04/16/25 04/28/25 History billion cell capsule (Probiotic) Patient hx anesthesia problems: none Family hx anesthesia problems: none Results Review: All pre-operative results and documents have been reviewed as part of the pre- operative evaluation. [facility] Social History Social History Smoking status: Never smoker Second hand tobacco smoke exposure: No Alcohol intake: current Drinks per week: 2 Substance use: never Substance use type: does not use Living arrangements: with family Spiritual care concerns: No Anes - Eval Final PreProcedure Day of Procedure 04/28/25 11:44 Heart: regular rate and rhythm Lungs: clear to auscultation Airway: Mallampati scale class II Neurological: alert and oriented Last oral intake: >/= 8 hours ASA classification: II Anesthetic plan: proceed Anesthesia type and monitoring: monitored anesthesia care Results Review: All pre-operative results and documents have been reviewed as part of the pre- operative evaluation. Informed Consent: The patient's anesthetic plan and its attendant risks and benefits were discussed with the patient/family/POA. Questions were solicited and answers provided to the satisfaction of the patient/family/POA.
[2025-04-28] MEDS: LACTATED RINGERS 1,000 ML 150 ML IV CONT (11:57)
--- NOTE | 2025-04-28 12:36 | PM.IMHP ---
H&P: HPI History of Present Illness Date/Time: 04/28/25 12:36 Chief Complaint: Screening colonoscopy Narrative: This is the patient's first colonoscopy. There are no GI symptoms and there is no family history of colorectal cancer. Review of Systems Review of Systems: All systems reviewed & are unremarkable except as noted in HPI and below PMFSH Social History Social History Smoking status: Never smoker Second hand tobacco smoke exposure: No Alcohol intake: current Drinks per week: 2 Substance use: never Substance use type: does not use Living arrangements: with family Spiritual care concerns: No Meds Home Medications and Allergies Home Medications ?Medication ?Instructions ?Recorded ?Confirmed ?Type fluoxetine 10 mg capsule 10 mg PO QPM 12/30/24 04/28/25 History lactobacillus combination no.4 3 3,000 mmu cells PO DAILY 04/16/25 04/28/25 History billion cell capsule (Probiotic) Allergies Allergy/AdvReac Type Severity Reaction Status Date / Time amoxicillin Allergy Unknown Hives Verified 04/28/25 10:47 dicloxacillin Allergy Unknown Hives Verified 04/28/25 10:47 Penicillins Allergy Unknown Hives Verified 04/28/25 10:47 Vital Signs Vital Signs - 24 hr 04/28/25 10:59 Temperature 97.6 F Pulse Rate 64 Respiratory Rate 16 Blood Pressure 106/69 Pulse Oximetry 100 Oxygen Delivery Room Air Exam Const: General: cooperative and healthy appearing Resp: Effort & Inspection: normal respiratory effort and able to speak in complete sentences Auscultation: clear to auscultation bilaterally Cardio: Rate: regular rate Rhythm: regular rhythm GI: Inspection: normal to inspection GI Palp: No No hepatosplenomegaly present Auscultation: normal bowel sounds Rectal Exam: deferred Skin: General skin exam: normal color Psych: Appearance: grossly normal Mental Status: mental status grossly normal Assessment and Plan Assessment and plan (1) Encounter for screening colonoscopy: Code(s): Z12.11 - Encounter for screening for malignant neoplasm of colon Status: Acute Assessment and Plan: The patient is deemed a good candidate for the procedure. Consent signed. Will proceed.
--- NOTE | 2025-04-28 12:55 | WPDANESPN ---
Anes - Prog Note Post-Op Date/Time: 04/28/25 12:55 Vital Signs: Last Vital Signs Temp 97.6 F 04/28/25 10:59 Pulse 64 04/28/25 10:59 Resp 16 04/28/25 10:59 BP 106/69 04/28/25 10:59 Pulse Ox 100 04/28/25 10:59 O2 Del Method Room Air 04/28/25 10:59 Pain Score (VAS): no Patient Feedback: Patient satisfied with anesthetic care.
[2025-04-28 13:03] VITALS: BP 89/54; PULSE 65; RESP 16; O2SAT 98
[2025-04-28 13:13] VITALS: BP 99/56; PULSE 62; RESP 16; O2SAT 100
[2025-04-28 13:23] VITALS: BP 94/54; PULSE 60; RESP 16; O2SAT 100
== END 2025-04-28 13:45 | disposition home or self-care (01) ==
PROVIDERS: PCP Physician Assistant; Visit Provider Internal Medicine Gastroenterology
PROC: 0DJD8ZZ Inspection of Lower Intestinal Tract, Via Natural or Artificial Opening Endoscopic (ICD-10-PCS; CPT 45378; principal; 2025-04-28 12:00)
DX: Z12.11 Encounter for screening for malignant neoplasm of colon (principal)
CPT/HCPCS: 45378